=== PATIENT | female | born 1980 | race Caucasian/White ===

== ENCOUNTER 2017-12-14 13:22 | Day surgery (SDC) | payer BC ==
[2017-12-14] MEDS ORDERED: LIDOCAINE 2% (SDV) 5 ML INJ (15:38)
[2017-12-14] MEDS ORDERED: PROPOFOL 60 ML (15:38)
== END 2017-12-15 09:05 | disposition home or self-care (01) ==
LOC: GIL 12-15 09:05
DX: K25.9 Gastric ulcer, unspecified as acute or chronic, without hemorrhage or perforation (principal); E11.9 Type 2 diabetes mellitus without complications; E78.5 Hyperlipidemia, unspecified; I10 Essential (primary) hypertension; E66.9 Obesity, unspecified; Z68.39 Body mass index [BMI] 39.0-39.9, adult
CPT/HCPCS: 43239; 82962; 84703; 88305; 88312; 88313

== ENCOUNTER 2018-01-20 10:34 | Day surgery (SDC) | payer BC ==
[2018-01-20] MEDS: BUPIVACAINE 0.5%/EPI (SDV) 30 ML INJ INJ
[2018-01-20] MEDS: LIDOCAINE 1% (MPF) 30 ML INJ INJ
[~2018-01-20 10:34] MED LIST: CEFAZOLIN 1 GM INJ; CEFAZOLIN 2 GM/50 ML (PMX) 50 ML IVPB; DEXAMETHASONE 4 MG/ML 1 ML INJ; FENTAnyl 50 MCG/ML VIAL; GLYCOPYRROLATE 1 MG INJ; LIDOCAINE 2% (SDV) 5 ML INJ; MIDAZOLAM 1 MG/ML 2 ML INJ; Metronidazole 500 MG in NS 100 ML IVPB; NEOSTIGMINE 3 MG/3 ML SYRINGE; ONDANSETRON 4 MG INJ; PROPOFOL 20 ML; ROCURONIUM 50 MG INJ; SUCCINYLCHOLINE CHLORIDE 100 MG/5 ML SYG IV
[2018-01-20] MEDS ORDERED: LIDOCAINE 4% CR (11:54)
[2018-01-20] MEDS ORDERED: LIDOCAINE 1% (MDV) 20 ML INJ (12:45)
[2018-01-20] MEDS ORDERED: LIDOCAINE 1% (MPF) 30 ML INJ (12:50)
[2018-01-20] MEDS ORDERED: BUPIVACAINE 0.5%/EPI (SDV) 30 ML INJ (12:50)
== END 2018-01-20 15:27 | disposition home or self-care (01) ==
LOC: SDS 10:34
DX: K60.2 Anal fissure, unspecified (principal); E11.9 Type 2 diabetes mellitus without complications
CPT/HCPCS: 46200; 82962; 84703